=== PATIENT | male | born 1965 | race Caucasian/White ===

== ENCOUNTER → 2021-07-25 | Outpatient (CLI) | payer BC ==
--- NOTE | 2021-07-25 13:03 | KCIC ---
Study: XR THORACIC SPINE 3VIEWS Indication: Mid upper back pain. Fall. Comparison: None. Findings: 12 rib-bearing thoracic vertebral bodies. Minimal dextrocurvature at the upper thoracic spine centere d at T3. Thoracic kyphosis is within normal limits. Normal vertebral body height and alignment on the lateral views noting limited assessment of the far upper thoracic spine on account of osseous overla p. The cervical spine on the swimmer's view is incompletely evaluated but unremarkable. No disc space collapse. Impression: No acute radiographic abnormality of the thoracic spine or significant spondylosis. If there is ongoi ng pain/pinpoint tenderness cross-sectional imaging would be more sensitive to exclude subtle injury. Electronically signed by: KEI ROBERTS MD (07/25/2021 1:01 PM) [facility]
== END ==
LOC: KCIC 09:40
PROVIDERS: ATTEND Family Medicine
DX: M54.6 Pain in thoracic spine (principal)
CPT/HCPCS: 72072

== ENCOUNTER → 2021-09-19 | Outpatient (CLI) | payer BC ==
--- NOTE | 2021-09-19 16:37 | KCIC ---
MRI THORACIC SPINE WO, MR CERVICAL SPINE WO History:Reason: THORACIC BACK PAIN / Spl. Instructions: Fall from a hospital bed 06/2021. / History: Neck and middle back pain since fall. Technique: Multiplanar, multi sequential noncontrast MR imaging was performed of the cervical and tho racic spine. Comparison: May 08, 2014 Findings: Motion degraded evaluation. Cervical spine MRI: Normal vertebral body height and alignment. No fracture. No pathologic signal abnormality within the cervical spinal cord. Mild inferior cerebellar tonsillar ectopia. C2-C3: No canal or neuroforaminal narrowing. C3-C4: Small disc bulge. No canal or neuroforaminal narrowing. C4-C5: Small disc bulge. No canal or neuroforaminal narrowing. C5-C6: Small posterior disc osteophyte complex. Mild cord flattening. Partial effacement of ventral CSF space. Dorsal CSF spaces preserved. No canal narrowing. Left perineural root sleeve cyst. No neur oforaminal narrowing. C6-C7: Small posterior disc osteophyte complex. No canal narrowing. Uncovertebral facet arthropathy . Moderate right neuroforaminal narrowing. No left neuroforaminal narrowing. C7-T1: No canal or neuroforaminal narrowing. Mild facet arthropathy. Compared the prior examination the degenerative findings are progressed. Thoracic spine: Normal vertebral body height and alignment. No acute fracture. No pathologic signal abnormality within the thoracic spinal cord. Several perineural root sleeve cyst s most prominent left T8-T9. Minimal degenerative disc changes with tiny disc protrusions. No significant canal or neuroforaminal narrowing. Minimal cord flattening T7-T8. Impression: Cervical spine MRI: 1. Mild cervical spondylosis most prominent C5-C6 and C6-C7, progressed compared to prior. 2. Moderate right C6-C7 neuroforaminal narrowing. Thoracic spine MRI: 1. Minimal thoracic spondylosis. Electronically signed by: Lamont Lofton DO (09/19/2021 4:35 PM) [facility]
== END ==
LOC: KCIC MRI 11:10
PROVIDERS: ATTEND Surgery
DX: M47.23 Other spondylosis with radiculopathy, cervicothoracic region (principal); M48.02 Spinal stenosis, cervical region; M25.78 Osteophyte, vertebrae
CPT/HCPCS: 72141; 72146